=== PATIENT | male | born 2000 | race Caucasian/White ===

== ENCOUNTER 2024-02-23 23:22 | Emergency (ER) | payer SELFPAY ==
[2024-02-23] MEDS: Acetaminophen 500 MG Tab PO ONE (23:46)
[2024-02-23] MEDS: predniSONE 20 MG Tab PO ONE (23:46)
[2024-02-23] MEDS: Albuterol/Ipratropium 3.0-0.5 MG/3 ML Neb Soln NEB ONE (23:46)
[2024-02-23] MEDS: Ibuprofen 600 MG Tab PO ONE (23:48)
== END 2024-02-24 00:57 | disposition home or self-care (01) ==
LOC: MW.ED 23:22
DX: J70.5 Respiratory conditions due to smoke inhalation (principal); Z90.49 Acquired absence of other specified parts of digestive tract; Z75.8 Other problems related to medical facilities and other health care
CPT/HCPCS: 99284; A9270; 99283; J7620-GY

== ENCOUNTER 2024-12-21 12:51 | Emergency (ER) | payer SELFPAY ==
[2024-12-21] MEDS: Dexamethasone 4 MG Tab PO STA (13:50)
== END 2024-12-21 14:02 | disposition home or self-care (01) ==
LOC: MW.ED 12:51
DX: J02.0 Streptococcal pharyngitis (principal); J45.909 Unspecified asthma, uncomplicated; Z88.5 Allergy status to narcotic agent; Z79.51 Long term (current) use of inhaled steroids; Z79.899 Other long term (current) drug therapy; Z90.49 Acquired absence of other specified parts of digestive tract
CPT/HCPCS: 87428; 87651; 99283; J8540

== ENCOUNTER → 2025-01-18 | Emergency (ER) | payer SELFPAY ==
[2025-01-18] MEDS: Ketorolac 30 MG/ML SDV IVPUSH ONE (07:41)
[2025-01-18] MEDS: Acetaminophen 325 MG Tab PO ONE (07:43)
[2025-01-18 07:55] LABS: BASOPHILS ABSOLUTE AUTO 0.02 K/uL (0.00-0.20); BASOPHILS PERCENT AUTO 0.3 % (0.0-1.0); EOSINOPHILS ABSOLUTE AUTO 0.16 K/uL (0.00-0.45); EOSINOPHILS PERCENT AUTO 2.8 % (0.0-6.0); HEMATOCRIT 43.3 % (42.0-52.0); HEMOGLOBIN 15.7 g/dL (14.0-18.0); IMMATURE GRAN ABSOLUTE AUTO 0.02 K/uL (0.00-0.05); IMMATURE GRAN PERCENT AUTO 0.3 % (0.0-0.4); LYMPHOCYTES ABSOLUTE AUTO 2.14 K/uL (1.00-4.80); MEAN CORPUSCULAR HEMOGLOBIN 30.8 pg (28.0-32.0); MEAN CORPUSCULAR HGB CONC 36.3 g/dL (32.0-36.0); MEAN CORPUSCULAR VOLUME 85.1 fL (83.0-99.0); MEAN PLATELET VOLUME 10.8 fL (9.4-12.4); MONOCYTES ABSOLUTE AUTO 0.51 K/uL (0.00-0.80); MONOCYTES PERCENT AUTO 8.8 % (0.0-8.0); NEUTROPHILS ABSOLUTE AUTO 2.94 K/uL (1.80-7.70); NEUTROPHILS PERCENT AUTO 50.8 % (41.0-71.0); PLATELET COUNT,PLT 182 K/uL (150-400); RED BLOOD CELL COUNT 5.09 M/uL (4.52-5.90); WHITE BLOOD CELL COUNT,WBC 5.79 K/uL (3.9-11.3)
[2025-01-18 08:05] LABS: INR 1.05 (0.86-1.11)
[2025-01-18 08:38] LABS: A/G RATIO 1.2 (0.9-1.6); ALANINE AMINOTRANSFERASE,ALT 38 IU/L (14-63); ALBUMIN 3.8 g/dL (3.4-5.0); ALKALINE PHOSPHATASE 60 U/L (46-116); ASPARTATE AMNIOTRANSFERASE,AST 24 IU/L (15-37); BILIRUBIN TOTAL 0.6 mg/dL (0.2-1.0); BLOOD UREA NITROGEN,BUN 8 mg/dL (7.0-18.0); CALCIUM 8.7 mg/dL (8.5-10.1); CARBON DIOXIDE,CO2 28.6 mmol/L (21.0-32.0); CHLORIDE,CL 104 mmol/L (98-107); CREATININE 0.9 mg/dL (0.8-1.3); ESTIMATED GFR 122 mL/min (>60); GLUCOSE RANDOM 112 mg/dL (74-106); POTASSIUM,K 3.5 mmol/L (3.5-5.1); PROTEIN TOTAL,TP 6.9 g/dL (6.4-8.2); SODIUM,NA 141 mmol/L (136-148)
== END | disposition home or self-care (01) ==
LOC: MW.ED 07:27
DX: S82.842A Displaced bimalleolar fracture of left lower leg, initial encounter for closed fracture (principal); Z90.49 Acquired absence of other specified parts of digestive tract; Z88.5 Allergy status to narcotic agent; Z75.8 Other problems related to medical facilities and other health care; W01.0XXA Fall on same level from slipping, tripping and stumbling without subsequent striking against object, initial encounter
CPT/HCPCS: 29515; 36415; 73610; 80053; 85025; 85610; 96374; 99284; A9270; J1885

== ENCOUNTER 2025-01-21 09:38 | Day surgery (SDC) | payer OTHER ==
[~2025-01-21 09:38] MED LIST: Albuterol 0.083% 2.5 MG/3 ML Neb Soln NEB PRN; HYDROmorphone 1 MG/ML Syringe IVPUSH PRN; Metoclopramide 10 MG/2 ML SDV IVPUSH PRN; Morphine 2 MG/ML SYRINGE IVPUSH PRN; Naloxone 0.4 MG/ML SDV IVPUSH PRN; Ondansetron 4 MG/2 ML SDV IVPUSH PRN; Phenylephrine HCl In 0.9% NaCl 1 MG/10 ML Syringe IVPUSH PRN; ceFAZolin 2 GM in Sodium Chloride 0.9% 50 ML IV ONE; fentaNYL 50 MCG/ML SDV IVPUSH PRN
[2025-01-21] MEDS ORDERED: Famotidine 20 MG/2 ML SDV ONE (10:21)
[2025-01-21] MEDS ORDERED: Ropivacaine 0.5% 5 MG/ML 30 ML SDV ONE (10:21)
[2025-01-21] MEDS ORDERED: Midazolam 1 MG/ML 2 ML SDV ONE (10:27)
[2025-01-21] MEDS ORDERED: EPINEPHrine 1 MG/1 ML Amp ONE (10:58)
[2025-01-21] MEDS ORDERED: fentaNYL 100 MCG/2 ML SDV ONE (10:58)
[2025-01-21] MEDS ORDERED: Ketamine HCL/NACL, ISO-OSM 50 MG/5 ML Syringe ONE (11:08)
[2025-01-21] MEDS ORDERED: propofoL 500 MG/50 ML 50 ML ONE ×2 (11:09→12:01)
[2025-01-21] MEDS ORDERED: ceFAZolin 2 GM Vial ONE (11:13)
[2025-01-21] MEDS ORDERED: Ondansetron 4 MG/2 ML SDV ONE (11:17)
[2025-01-21] MEDS ORDERED: Dexamethasone 4 MG/ML 5 ML MDV ONE (11:17)
[2025-01-21] MEDS ORDERED: Ketorolac 30 MG/ML SDV ONE (11:17)
[2025-01-21] MEDS ORDERED: Lidocaine 2% 11 ML Jelly Filled Syringe ONE (11:29)
[2025-01-21] MEDS: Lactated Ringers 1,000 ML IV SCH (15:05)
== END 2025-01-21 15:30 | disposition home or self-care (01) ==
LOC: MW.SDS 09:38
PROVIDERS: ATTEND Orthopaedic Surgery
DX: S82.842A Displaced bimalleolar fracture of left lower leg, initial encounter for closed fracture (principal); J45.909 Unspecified asthma, uncomplicated; F32.A Depression, unspecified; Z79.899 Other long term (current) drug therapy; X58.XXXA Exposure to other specified factors, initial encounter
CPT/HCPCS: 27814; 76000; A9270; J0131; J0690; J1100; J1885; J2250; J2405; J2704; J2795; J3010; J7120; 01480; 64447; J0171; J3490